=== PATIENT | male | born 1990 | race American Indian/Alaskan Native ===

== ENCOUNTER 2016-11-30 19:45 | Emergency (ER) | payer SELFPAY ==
--- NOTE | 2016-12-01 00:29 | Emergency Department Report ---
ED Back Pain/Injury HPI - General Chief Complaint: Back Pain/Injury Stated Complaint: BACK PAIN/HEADACHE Time Seen by Provider: 12/01/16 00:25 Source: patient Limitations: No Limitations - History of Present Illness Initial Comments: 26-year-old male comes in for complaint of headache times one day and back pain 1 week. 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 He reports that he's been working 7 days a week. He reports his a past medical history of back injury. He also tells me that he has not tried any pain medication at all. He denies any recent traumas no falls. - Related Data Previous Rx's Medication Instructions Recorded Last Taken Type Naproxen [Naprosyn TAB] 500 mg PO BID #20 tablet 12/01/16 Unknown Rx Sulfamethoxazole/Trimethoprim 1 each PO BID #14 tablet 12/01/16 Unknown Rx [Bactrim DS TAB] methOCARBAMOL [Robaxin TAB] 500 mg PO BID #20 tab 12/01/16 Unknown Rx Allergies Allergy/AdvReac Type Severity Reaction Status Date / Time No Known Allergies Allergy Verified 11/30/16 20:36 ED Review of Systems ROS: Stated complaint: BACK PAIN/HEADACHE Other details as noted in HPI ED Past Medical Hx - Past Medical History Previous Medical History?: Yes Additional medical history: BACK - Surgical History Past Surgical History?: No - Medications Home Medications: Home Medications Medication Instructions Recorded Confirmed Last Taken Type Naproxen [Naprosyn TAB] 500 mg PO BID #20 tablet 12/01/16 Unknown Rx Sulfamethoxazole/Trimethoprim 1 each PO BID #14 tablet 12/01/16 Unknown Rx [Bactrim DS TAB] methOCARBAMOL [Robaxin TAB] 500 mg PO BID #20 tab 12/01/16 Unknown Rx ED Physical Exam - General Limitations: No Limitations General appearance: alert, in no apparent distress - Head Head exam: Present: atraumatic, normocephalic - Eye Eye exam: Present: normal appearance, PERRL, EOMI - ENT ENT exam: Present: mucous membranes moist - Neck Neck exam: Present: normal inspection - Respiratory Respiratory exam: Present: normal lung sounds bilaterally. Absent: respiratory distress - Cardiovascular Cardiovascular Exam: Present: regular rate, normal rhythm, normal heart sounds - GI/Abdominal GI/Abdominal exam: Present: soft. Absent: distended, tenderness - Extremities Exam Extremities exam: Present: normal inspection, full ROM - Back Exam Back exam: Present: full ROM, CVA tenderness (R), CVA tenderness (L) - Neurological Exam Neurological exam: Present: alert, oriented X3 - Psychiatric Psychiatric exam: Present: normal affect, normal mood - Skin Skin exam: Present: warm, dry, intact ED Course Vital Signs 11/30/16 20:36 Temperature 98.2 F Pulse Rate 74 Respiratory 22 Rate Blood Pressure 127/78 O2 Sat by Pulse 100 Oximetry ED Medical Decision Making - Medical Decision Making Patient evaluated by this provider in fast track. Discussed the patient with a urine secondary to CVA tenderness bilateral. Patient does admit he doesn't drink much water. Discussed with patient the results of his urinalysis. We will treat patient accordingly and discharged patient on antibiotics as well as pain medicine. We will discharge patient also and a work excuse. She verbalized understanding Critical care attestation.: If time is entered above; I have spent that time in minutes in the direct care of this critically ill patient, excluding procedure time. ED Disposition Clinical Impression: UTI (urinary tract infection), bacterial Back pain Qualifiers: Back pain location: low back pain Chronicity: acute Back pain laterality: bilateral Sciatica presence: without sciatica Qualified Code(s): M54.5 - Low back pain Disposition: DISCHARGED TO HOME OR SELFCARE Is pt being admited?: No Does the pt Need Aspirin: No Condition: Stable Instructions: Urinary Tract Infection in Men (ED) Additional Instructions: Take all medication as prescribed recommended to follow up with a primary provider to recheck her urine. Prescriptions: methOCARBAMOL [Robaxin TAB] 500 mg PO BID #20 tab Naproxen [Naprosyn TAB] 500 mg PO BID #20 tablet Sulfamethoxazole/Trimethoprim [Bactrim DS TAB] 1 each PO BID #14 tablet Referrals: PRIMARY CAREMD [Primary Care Provider] - 3-5 Days LESIA BARRAZA MD [Staff Physician] - 3-5 Days Forms: Work/School Release Form(ED)
[2016-12-01] MEDS ORDERED: TORADOL IM ONE (00:30)
[2016-12-01 00:52] LABS: Bilirubin,Urine NEG (Negative); Blood,Urine NEG (Negative); Ketones,Urine NEG (Negative); Leukocyte Esterase,Urine MOD (Negative); Mucus,Urine 3+ /HPF; Nitrite,Urine NEG (Negative); Protein,Urine <15 mg/dL mg/dL (Negative)
[2016-12-01 01:43] VITALS: BP 107/73
== END 2016-12-01 01:42 | disposition home or self-care (01) ==
LOC: ED 19:45
DX: N39.0 Urinary tract infection, site not specified (principal); M54.5 Low back pain
CPT/HCPCS: 81001; 96372; 99283; J1885